=== PATIENT | male | born 1945 | race Caucasian/White ===

== ENCOUNTER 2020-09-01 03:10 | Emergency (ER) | payer OTHER ==
[2020-09-01] MEDS ORDERED: Sodium Chloride 0.9% 10 ML Syringe FLUSH PRN (03:35)
--- NOTE | 2020-09-01 03:40 | EDM.PDOC ---
ED HPI GENERAL MEDICAL PROBLEM - General Chief Complaint: Respiratory Problem Stated Complaint: SOB Time Seen by Provider: 09/01/20 03:20 Source of Information: Reports: Patient, EMS History Limitations: Reports: No Limitations - History of Present Illness INITIAL COMMENTS - FREE TEXT/NARRATIVE: Patient was brought to ER by EMS - visiting from outside town - who is c/o SOB started today and slowly got worse. no fever or chills. h/o CHF on diuretics. Denies a h/o COPD thou he is on albuterol. [facility] and he is visiting here from [place]. h/o CAD s/p CABG many years ago. 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 HTN on lisinopril and metoprolol. Onset: Sudden Duration: Day(s): (1) - Related Data Allergies Allergy/AdvReac Type Severity Reaction Status Date / Time Iodinated Contrast Media Allergy Unknown Other Verified 09/01/20 03:44 chicken Allergy Other Uncoded 09/01/20 03:44 Home Meds: Home Meds Albuterol [Proventil Neb Soln] 2.5 mg .XX Q6HR #20 neb 09/01/20 [Rx] Aspirin [Ecotrin EC] 81 mg PO DAILY 09/01/20 [History] Clopidogrel Bisulfate [Clopidogrel] 75 mg PO DAILY 09/01/20 [History] Fish Oil/[place]-3 Fatty Acids [Fish Oil 1,000 MG] 2,000 mg TID 09/01/20 [History] Furosemide 40 mg PO DAILY 09/01/20 [History] Gabapentin [Neurontin] 600 mg PO BID 09/01/20 [History] Melatonin 6 mg PO BEDTIME 09/01/20 [History] Metoprolol Tartrate 50 mg PO BID 09/01/20 [History] Multivitamin 1 each PO DAILY 09/01/20 [History] Potassium Chloride 20 meq PO DAILY #20 tablet.er 09/01/20 [Rx] amLODIPine Besylate [Amlodipine Besylate] 10 mg PO DAILY 09/01/20 [History] atorvaSTATin Calcium [Atorvastatin Calcium] 80 mg PO BEDTIME 09/01/20 [History] lisinopriL [Lisinopril] 20 mg PO DAILY 09/01/20 [History] metFORMIN [Glucophage XR] 500 mg PO BIDMEALS 09/01/20 [History] traMADol [Ultram] 50 mg PO BID 09/01/20 [History] ED ROS GENERAL - Review of Systems Review Of Systems: See Below Constitutional: Reports: No Symptoms HEENT: Reports: No Symptoms Respiratory: Reports: Shortness of Breath Cardiovascular: Reports: Dyspnea on Exertion, Edema Endocrine: Reports: No Symptoms GI/Abdominal: Reports: No Symptoms Musculoskeletal: Reports: No Symptoms Skin: Reports: No Symptoms Neurological: Reports: No Symptoms Psychiatric: Reports: No Symptoms ED EXAM, GENERAL - Physical Exam Exam: See Below Exam Limited By: No Limitations General Appearance: Alert, WD/WN, Mild Distress Eye Exam: Bilateral Eye: EOMI, PERRL Head: Atraumatic Respiratory/Chest: Chest Non-Tender, Respiratory Distress, Rales, Accessory Muscle Use Cardiovascular: Normal Peripheral Pulses, Regular Rate, Rhythm GI/Abdominal: Normal Bowel Sounds, Soft, Non-Tender Extremities: Normal Inspection, Pedal Edema Neurological: Alert, Oriented Psychiatric: Normal Affect Skin Exam: Warm, Dry, Intact #1 Interpretation EKG Date: 09/01/20 Rhythm: NSR [place]: Normal QRS: LBBB ST-T: Normal QT: Normal Comparison: NA - No Prior EKG Course - Orders/Labs/Meds Orders: Active Orders 24 hr Category Date Time Status EKG Documentation Completion [RC] ASDIRECTED Care 09/01/20 03:36 Ordered RT Aerosol Therapy [RC] ASDIRECTED Care 09/01/20 04:40 Ordered Chest 1V Frontal [CR] Stat Exams 09/01/20 03:35 Ordered Sodium Chloride 0.9% [Saline Flush] Med 09/01/20 03:35 Ordered 10 ml FLUSH ASDIRECTED PRN Saline Lock Insert [OM.PC] Routine Oth 09/01/20 03:35 Ordered Medication Orders Sodium Chloride (Sodium Chloride 0.9% 10 Ml Syringe) 10 ml FLUSH ASDIRECTED PRN PRN Reason: Keep Vein Open Labs: Laboratory Tests 09/01/20 09/01/20 09/01/20 Range/Units 03:40 03:40 03:40 WBC 13.2 H (4.0-11.0) K/uL RBC 4.79 (4.50-6.50) M/uL Hgb 15.2 (13.0-18.0) g/dL Hct 45.4 (40.0-54.0) % MCV 95 (76-96) fL MCH 31.7 (27.0-32.0) pg MCHC 33.5 (31.0-35.0) g/dL RDW 14.5 (11.0-16.0) % Plt Count 212 (150-400) K/uL MPV 10.8 H (6.0-10.0) fL D-Dimer, Quantitative 1830 H (0-400) ng/mL Sodium 143 (136-145) mmol/L Potassium 3.2 L (3.5-5.1) mmol/L Chloride 104 (98-107) mmol/L Carbon Dioxide 25.9 (21.0-32.0) mmol/L Anion Gap 16.3 H (5.0-15.0) mmol/L BUN 15 (8-26) mg/dL Creatinine 0.83 (0.70-1.30) mg/dL Est Cr Clr Drug Dosing 64.83 mL/min Estimated GFR (MDRD) > 60 (>60) MLS/MIN BUN/Creatinine Ratio 18.1 (6-25) Glucose 161 H (74-100) mg/dL Calcium 8.3 L (8.5-10.1) mg/dL Troponin I 0.018 (0.000-0.060) ng/mL B-Natriuretic Peptide (0-450) pg/mL 09/01/20 Range/Units 03:40 WBC (4.0-11.0) K/uL RBC (4.50-6.50) M/uL Hgb (13.0-18.0) g/dL Hct (40.0-54.0) % MCV (76-96) fL MCH (27.0-32.0) pg MCHC (31.0-35.0) g/dL RDW (11.0-16.0) % Plt Count (150-400) K/uL MPV (6.0-10.0) fL D-Dimer, Quantitative (0-400) ng/mL Sodium (136-145) mmol/L Potassium (3.5-5.1) mmol/L Chloride (98-107) mmol/L Carbon Dioxide (21.0-32.0) mmol/L Anion Gap (5.0-15.0) mmol/L BUN (8-26) mg/dL Creatinine (0.70-1.30) mg/dL Est Cr Clr Drug Dosing mL/min Estimated GFR (MDRD) (>60) MLS/MIN BUN/Creatinine Ratio (6-25) Glucose (74-100) mg/dL Calcium (8.5-10.1) mg/dL Troponin I (0.000-0.060) ng/mL B-Natriuretic Peptide 1451 H (0-450) pg/mL Meds: Medications Generic Name Dose Route Start Last Admin Trade Name Freq PRN Reason Stop Dose Admin Sodium Chloride 10 ml 09/01/20 03:35 Sodium Chloride 0.9% 10 Ml Syringe FLUSH ASDIRECTED PRN Keep Vein Open Discontinued Medications Generic Name Dose Route Start Last Admin Trade Name Freq PRN Reason Stop Dose Admin Albuterol 2.5 mg 09/01/20 04:39 Albuterol 0.083% 2.5 Mg/3 Ml Neb Soln NEB 09/01/20 04:40 ONETIME ONE Albuterol/Ipratropium 3 ml 09/01/20 04:39 Albuterol/Ipratropium 3.0-0.5 Mg/3 Ml Neb Soln NEB 09/01/20 04:40 NOW STA Albuterol/Ipratropium Confirm 09/01/20 04:51 Albuterol/Ipratropium 3.0-0.5 Mg/3 Ml Neb Soln Administered 09/01/20 04:52 Dose 3 ml .ROUTE .STK-MED ONE Aspirin 162 mg 09/01/20 04:25 Aspirin 81 Mg Tab.Ec PO 09/01/20 04:26 ONETIME ONE Furosemide 20 mg 09/01/20 03:57 Furosemide 20 Mg/2 Ml Vial IVPUSH 09/01/20 03:58 ONETIME ONE Potassium Chloride 20 meq 09/01/20 04:25 Potassium Chloride 20 Meq Tab.Er PO 09/01/20 04:26 ONETIME ONE - Re-Assessments/Exams Free Text/Narrative Re-Assessment/Exam: patient was connected to a monitor - SpO2 98% on RA IV line was established labs - CBC, BMP, BNP, Trop and Ddimer CXR - evidence of pulmonary edema and cardiomegaly EKG - NSR, LBBB and left sided hypertrophy Trop WNL, but labs significant for elevation in BNP and hypokalemia. IV Lasix 20mg was given - had a large UOP. patient reports significant improvement in symptoms. Easier to breath and back to normal. Departure - Departure Time of Disposition: 04:55 Disposition: Home, Self-Care 01 Condition: Good Clinical Impression: SOB (shortness of breath), Hypokalemia, Smoking Congestive heart failure Qualifiers: Heart failure type: unspecified Heart failure chronicity: chronic Qualified Code(s): I50.9 - Heart failure, unspecified Chronic bronchitis Qualifiers: Chronic bronchitis type: simple Qualified Code(s): J41.0 - Simple chronic bronchitis - Discharge Information *PRESCRIPTION DRUG MONITORING PROGRAM REVIEWED*: Not Applicable *COPY OF PRESCRIPTION DRUG MONITORING REPORT IN PATIENT OSVALDO: Not Applicable Prescriptions: Potassium Chloride 20 meq PO DAILY #20 tablet.er Albuterol [Proventil Neb Soln] 2.5 mg .XX Q6HR #20 neb Instructions: Shortness of Breath, Adult, [id number], Heart Failure, Self Care, [id number] Referrals: Des Tapia MD [Primary Care Provider] - Forms: ED Department Discharge Additional Instructions: - increase lasix to 2 tabs daily for 3 days then back to one tab a day - use inhalers as prescribed - start taking potassium treatment as prescribed - recommend smoking cessation - follow up with your PCP in 1-2 weeks - return to the ER if symptoms got worse or any concerns - Problem List & Annotations (1) Chronic bronchitis SNOMED Code(s): 92863226 Code(s): J42 - UNSPECIFIED CHRONIC BRONCHITIS Status: Acute Priority: Low Current Visit: Yes Qualifiers: Chronic bronchitis type: simple Qualified Code(s): J41.0 - Simple chronic bronchitis (2) Congestive heart failure SNOMED Code(s): 44963848 Code(s): I50.9 - HEART FAILURE, UNSPECIFIED Status: Acute Priority: Low Current Visit: Yes Qualifiers: Heart failure type: unspecified Heart failure chronicity: chronic Qualified Code(s): I50.9 - Heart failure, unspecified (3) Hypokalemia SNOMED Code(s): 56228276 Code(s): E87.6 - HYPOKALEMIA Status: Acute Priority: Low Current Visit: Yes (4) SOB (shortness of breath) SNOMED Code(s): 264154308 Code(s): R06.02 - SHORTNESS OF BREATH Status: Acute Priority: Low Current Visit: Yes (5) Smoking SNOMED Code(s): 64113036 Code(s): F17.200 - NICOTINE DEPENDENCE, UNSPECIFIED, UNCOMPLICATED Status: Acute Priority: Low Current Visit: Yes - Problem List Review Problem List Initiated/Reviewed/Updated: Yes - My Orders Last 24 Hours: My Active Orders 09/01/20 03:35 Chest 1V Frontal [CR] Stat Sodium Chloride 0.9% [Saline Flush] 10 ml FLUSH ASDIRECTED PRN Saline Lock Insert [OM.PC] Routine 09/01/20 03:36 EKG Documentation Completion [RC] ASDIRECTED 09/01/20 04:40 RT Aerosol Therapy [RC] ASDIRECTED - Assessment/Plan Last 24 Hours: My Active Orders 09/01/20 03:35 Chest 1V Frontal [CR] Stat Sodium Chloride 0.9% [Saline Flush] 10 ml FLUSH ASDIRECTED PRN Saline Lock Insert [OM.PC] Routine 09/01/20 03:36 EKG Documentation Completion [RC] ASDIRECTED 09/01/20 04:40 RT Aerosol Therapy [RC] ASDIRECTED Plan: - increase lasix to 2 tabs daily for 3 days then back to one tab a day - use inhalers as prescribed - start taking potassium treatment as prescribed - recommend smoking cessation - follow up with your PCP in 1-2 weeks - return to the ER if symptoms got worse or any concerns
[2020-09-01] MEDS ORDERED: Furosemide 20 MG/2 ML VIAL IVPUSH ONE (03:57)
[2020-09-01] MEDS ORDERED: Potassium Chloride 20 MEQ Tab.ER PO ONE (04:25)
[2020-09-01] MEDS ORDERED: Aspirin 81 MG Tab.EC PO ONE (04:25)
[2020-09-01] MEDS ORDERED: Albuterol/Ipratropium 3.0-0.5 MG/3 ML Neb Soln NEB STA (04:39)
[2020-09-01] MEDS ORDERED: Albuterol 0.083% 2.5 MG/3 ML Neb Soln NEB ONE (04:39)
[2020-09-01] MEDS ORDERED: Albuterol/Ipratropium 3.0-0.5 MG/3 ML Neb Soln ONE (04:51)
--- NOTE | 2020-09-03 09:59 | CR ---
DATE OF SERVICE: 09/01/20 CLINICAL DATA: SOB AP CHEST: No priors. The patient is in an apical lordotic position. The patient is status post median sternotomy. The heart is enlarged. The pulmonary vasculature is prominent with cephalization of flow consistent with pulmonary venous congestion. Congestive failure is suspected. There are mild interstitial changes throughout both lungs. The lungs are otherwise clear. There is a small hiatal hernia. No pneumothorax. No pleural effusions. [id number] [facility]
== END 2020-09-01 05:15 | disposition home or self-care (01) ==
LOC: LB.ED 04:17
DX: J41.0 Simple chronic bronchitis (principal); E87.6 Hypokalemia; F17.200 Nicotine dependence, unspecified, uncomplicated; I11.0 Hypertensive heart disease with heart failure; I50.9 Heart failure, unspecified; E11.9 Type 2 diabetes mellitus without complications; I25.10 Atherosclerotic heart disease of native coronary artery without angina pectoris; Z79.82 Long term (current) use of aspirin; Z79.02 Long term (current) use of antithrombotics/antiplatelets; Z79.84 Long term (current) use of oral hypoglycemic drugs; Z91.041 Radiographic dye allergy status; Z91.018 Allergy to other foods; Z95.1 Presence of aortocoronary bypass graft
CPT/HCPCS: 36415; 71045; 80048; 83880; 84484; 85027; 85379; 93005; 99285; A9270; J1940; A0425; A0429; J7620-GY